=== PATIENT | female | born 1990 | race African-American/Black ===

== ENCOUNTER 2016-09-14 19:53 | Emergency (ER) | payer OTHER ==
[~2016-09-14] VITALS: Ht 154.9 cm; Wt 96.6 kg
[2016-09-14] MEDS ORDERED: [UNRECOGNIZED DRUG - REMARK] (20:08)
[2016-09-14] MEDS ORDERED: ZANTAC 150MG T150 MG PO (20:08)
[2016-09-14 20:41] LABS: BASOPHILS 0.3 % (0.0-2.0); EOSINOPHILS 3.1 % (0.0-3.0); HEMATOCRIT 35.8 % (37.0-47.0); HEMOGLOBIN 12.4 gm/dL (12.0-15.0); LYMPHOCYTES 25.9 % (24.0-44.0); MCH 31.1 pg (26.0-34.0); MCHC 34.6 g/dL (28.0-37.0); MCV 89.9 fL (80.0-100.0); MONOCYTES 7.3 % (1.0-8.0); PLATELET COUNT 228 thou/uL (150-400); POLYS 63.4 % (36.0-66.0); RBC 3.99 mil/uL (4.20-5.00); RDW 12.8 % (10.5-14.5); WBC 7.9 thou/uL (4.0-11.0)
[2016-09-14 20:42] LABS: MANUAL DIFF NO
[2016-09-14 20:48] LABS: CALCIUM 8.5 mg/dL (8.5-10.1); CREATININE 0.6 mg/dL (0.6-1.3); POTASSIUM 3.5 mmol/L (3.5-5.1)
[2016-09-14 20:53] LABS: ALBUMIN 2.9 g/dL (3.4-5.0); TOTAL BILIRUBIN 0.2 mg/dL (<0.1-1.0); TOTAL PROTEIN 6.9 g/dL (6.4-8.2)
[2016-09-14 21:28] VITALS: BP 109/42
== END 2016-09-14 21:33 | disposition short-term general hospital (02) ==
LOC: ER 19:53
PROVIDERS: Emergency Medicine
DX: O26.892 Other specified pregnancy related conditions, second trimester (principal); R10.9 Unspecified abdominal pain